=== PATIENT | male | born 1980 | race Caucasian/White ===

== ENCOUNTER 2017-08-22 02:41 | Emergency (ER) | payer OTHER ==
[2017-08-22] MEDS ORDERED: morphine SULFATE 4 MG/ML VIAL IVPUSH ONE (02:57)
[2017-08-22] MEDS ORDERED: SODIUM CHLORIDE 1,000 ML IV STA (02:57)
[2017-08-22] MEDS ORDERED: ONDANSETRON 4 MG/2 ML VIAL IVPUSH ONE (02:57)
--- NOTE | 2017-08-22 02:57 | PDOC ---
History of Present Illness - General Chief Complaint: Pain, Acute Stated Complaint: ABDOMINAL PAIN Time Seen by Provider: 08/22/17 02:52 History Source: Patient Exam Limitations: No Limitations - History of Present Illness Travel History: No Initial Comments: 08/22/17 02:59 36-year-old male with past medical history of morbid obesity status post gastric sleeve and status post gastric bypass who presents emergency Department with sudden onset epigastric pain starting at approximately 1 8 AM. Patient states pain came on all of a sudden 12/15 which she describes as a sharp stabbing pain which woke him from sleep. Pain radiates to his back through his body. Patient states he attempted to take [id number] medications and milk with no relief of symptoms. He denies fevers, chills, shortness of breath, chest pain, nausea, vomiting, diarrhea, rectal bleeding. Past History - Past Medical History Allergies/Adverse Reactions: Allergies Allergy/AdvReac Type Severity Reaction Status Date / Time No Known Allergies Allergy Verified 08/22/17 03:27 Home Medications: Ambulatory Orders NK [No Known Home Medication] 08/22/17 Review of Systems - Review of Systems Able to Perform ROS?: Yes Is the patient limited [place] proficient: No Constitutional: No: Symptoms Reported HEENTM: No: Symptoms Reported Respiratory: No: Symptoms reported Cardiac (ROS): No: Symptoms Reported ABD/GI: Yes: See HPI : No: Symptoms Reported Musculoskeletal: No: Symptoms Reported Integumentary: No: Symptoms Reported Neurological: No: Symptoms reported Endocrine: No: Symptoms Reported Hematologic/Lymphatic: No: Symptoms Reported *Physical Exam - Physical Exam General Appearance: Yes: Appropriately Dressed. No: Apparent Distress Neck: positive: Trachea midline, Supple Respiratory/Chest: positive: Lungs Clear, Normal Breath Sounds. negative: Respiratory Distress, Accessory Muscle Use Cardiovascular: positive: Regular Rhythm, Regular Rate. negative: Murmur Gastrointestinal/Abdominal: positive: Normal Bowel Sounds, Tender (upper abdomen ), Soft Musculoskeletal: positive: Normal Inspection. negative: CVA Tenderness Integumentary: positive: Normal Color, Dry, Warm, Other (Multiple healed laparoscopic surgical wounds noted to abdomen) Neurologic: positive: Alert, Normal Response ED Treatment Course - LABORATORY CBC & Chemistry Diagram: 08/22/17 03:24 08/22/17 03:24 Medical Decision Making - Medical Decision Making 08/22/17 03:02 A/P: 36-year-old male with history of GERD, morbid obesity status post gastric sleeve status post gastric bypass with upper abdominal pain for approximately 2 hours Normoactive bowel sounds Abdomen soft with tenderness noted in the upper abdomen No palpable masses in the abdomen Pulses equal bilaterally Patient with gastric bypass in April of this year. I will obtain laboratory testing, CAT scan. Morphine 4 mg IV for pain, Zofran 4 mg for nausea, normal saline 1 L bolus. 08/22/17 04:39 Laboratory testing is unremarkable. 08/22/17 05:[address] abdomen and pelvis by imaging installation tech: No bowel obstruction, free air or free fluid. Negative for diverticulitis or colitis. Normal appendix noted. Gallbladder is distended. The common bile duct is also mildly dilated. Correlate with any right upper quadrant pain. Ultrasound may be helpful to evaluate for acute gallbladder/biliary disease. Normal liver. Normal spleen. Normal pancreas. Normal adrenal glands. Osseous structures are intact. Lab testing and PE not c/w gallbladder disease at this time. Patient's pain currently 04/16. I will discharge the patient home with instructions to follow- up with his bariatric surgeon. *DC/Admit/Observation/Transfer Diagnosis at time of Disposition: Abdominal pain Qualifiers: Abdominal location: epigastric Qualified Code(s): R10.13 - Epigastric pain - Discharge Dispostion Disposition: HOME Condition at time of disposition: Fair Decision to Admit order: No - Referrals Referrals: ON STAFF,NOT [Primary Care Provider] - - Patient Instructions Additional Instructions: Eat small frequent meals. Keep well-hydrated. Take Tylenol or Motrin as needed for pain. Make an appointment with her bariatric surgeon for evaluation within the next week. Return to emergency department for any worsening pain, nausea, vomiting, fevers , chills or any other concerns. - Post Discharge Activity
[2017-08-22 03:37] LABS: BASO % 0.4 % (0-2.0); EOS % 1.8 % (0-4.5); HEMATOCRIT 40.6 % (35.4-49); HEMOGLOBIN 13.6 GM/dL (11.7-16.9); LYMPH % 17.3 % (8-40); MCH 31.2 pg (25.7-33.7); MCHC 33.4 g/dl (32.0-35.9); MEAN CELL VOLUME 93.2 fl (80-96); MEAN PLT VOLUME 10.4 fl (7.5-11.1); NEUT % 74.5 % (42.8-82.8); PLATELET COUNT 204 K/MM3 (134-434); RBC 4.36 M/mm3 (4.00-5.60)
[2017-08-22] MEDS ORDERED: ONDANSETRON 4 MG/2 ML VIAL ONE (03:42)
[2017-08-22] MEDS ORDERED: MORPHINE SULFATE 10 MG/1 ML *VIAL ONE (03:42)
[2017-08-22 04:11] LABS: ALBUMIN 4.2 g/dl (3.4-5.0); ALK PHOS 83 U/L (45-117); ANION GAP 6 (8-16); BILIRUBIN,TOTAL 0.4 mg/dL (0.2-1.0); BLOOD UREA NITROGEN 15 mg/dL (7-18); CALCIUM 8.3 mg/dL (8.5-10.1); CHLORIDE 108 mmol/L (98-107); CO2 29 mmol/L (21-32); CREATININE 0.8 mg/dL (0.7-1.3); GLUCOSE,RANDOM 90 mg/dL (74-106); SGPT/ALT 41 U/L (12-78); SODIUM 143 mmol/L (136-145); TOT PROT 6.7 g/dl (6.4-8.2)
[2017-08-22 04:11] LABS: URINE APPEARANCE CLOUDY; URINE BILIRUBIN NEGATIVE (<2.0 mg/dL); URINE COLOR YELLOW; URINE GLUCOSE (UA) 1+ (NEGATIVE); URINE KETONE NEGATIVE (NEGATIVE); URINE LEUK ESTERASE NEGATIVE (NEGATIVE); URINE NITRITE NEGATIVE (NEGATIVE); URINE PROTEIN NEGATIVE (NEGATIVE); URINE UROBILINOGEN 4.0 E.U/dl mg/dL (0.2-1.0)
[2017-08-22 04:14] LABS: LIPASE 212 U/L (73-393); POTASSIUM 4.6 mmol/L (3.5-5.1); SGOT/AST 49 U/L (15-37)
--- NOTE | 2017-08-22 04:48 | PDOC ---
*Physical Exam - Vital Signs Last Vital Signs Temp Pulse Resp BP Pulse Ox 97.2 F L 89 19 112/82 98 08/22/17 02:45 08/22/17 02:45 08/22/17 02:45 08/22/17 02:45 08/22/17 02:45 ED Treatment Course - LABORATORY CBC & Chemistry Diagram: 08/22/17 03:24 08/22/17 03:24 - ADDITIONAL ORDERS Additional order review: Laboratory Results 08/22/17 08/22/17 04:14 03:24 Sodium 143 Potassium 4.6 Chloride 108 H Carbon Dioxide 29 Anion Gap 6 L BUN 15 Creatinine 0.8 Creat Clearance w eGFR > 60 Random Glucose 90 Calcium 8.3 L Total Bilirubin 0.4 AST 49 H ALT 41 Alkaline Phosphatase 83 Total Protein 6.7 Albumin 4.2 Lipase 212 Urine Color Yellow Urine Appearance Cloudy Urine pH 8.0 Ur Specific [place] 1.020 Urine Protein Negative Urine Glucose (UA) 1+ H Urine Ketones Negative Urine Blood Negative Urine Nitrite Negative Urine Bilirubin Negative Urine Urobilinogen 4.0 e.u/dl Ur Leukocyte Esterase Negative 08/22/17 03:24 RBC 4.36 MCV 93.2 MCHC 33.4 RDW 12.0 MPV 10.4 Neutrophils % 74.5 Lymphocytes % 17.3 Monocytes % 6.0 Eosinophils % 1.8 Basophils % 0.4 - Medications Given in the ED: ED Medications Discontinued Medications Generic Name Dose Route Start Last Admin Trade Name Freq PRN Reason Stop Dose Admin Sodium Chloride 1,000 mls @ 1,000 mls/hr 08/22/17 02:57 08/22/17 04:13 Normal Saline - IV 08/22/17 03:56 1,000 mls/hr ASDIR STA Administration Morphine Sulfate 4 mg 08/22/17 02:57 08/22/17 03:49 Morphine Sulfate IVPUSH 08/22/17 02:58 4 mg ONCE ONE Administration Ondansetron HCl 4 mg 08/22/17 02:57 08/22/17 03:50 Zofran Injection IVPUSH 08/22/17 02:58 4 mg ONCE ONE Administration Medical Decision Making - Medical Decision Making 08/22/17 04:47 agree care from CAYDEN Swenson *DC/Admit/Observation/Transfer Diagnosis at time of Disposition: Abdominal pain - Discharge Dispostion Disposition: HOME Condition at time of disposition: Fair - Referrals Referrals: ON STAFF,NOT [Primary Care Provider] - - Patient Instructions Printed Discharge Instructions: DI for Abdominal Pain-Adult Additional Instructions: Eat small frequent meals. Keep well-hydrated. Take Tylenol or Motrin as needed for pain. Make an appointment with her bariatric surgeon for evaluation within the next week. Return to emergency department for any worsening pain, nausea, vomiting, fevers , chills or any other concerns. - Post Discharge Activity
[2017-08-22 06:10] VITALS: BP 128/76; PULSE 88; TEMP 98.2
--- NOTE | 2017-08-22 09:30 | PDOC ---
Patient Follow-up (Call Back) - Post ED Follow - Up Condition at time of discharge: Fair Disposition at time of original discharge: HOME Reason for Call Back: Radiology - Disposition Additional Instructions/Notes: Radiology read (+) stone in gallbladder neck 3mm with dilated bile duct. Needs MRCP to r/o obstruction. patient was called and message was left for call back.
--- NOTE | 2017-08-22 10:30 | EKG ---
Test Reason : Blood Pressure : / mmHG Vent. Rate : 071 BPM Atrial Rate : 071 BPM P-R Int : 156 ms QRS Dur : 096 ms QT Int : 396 ms P-R-T Axes : 053 026 046 degrees QTc Int : 430 ms NORMAL SINUS RHYTHM NON-SPECIFIC INTRA-VENTRICULAR CONDUCTION DELAY NO PREVIOUS ECGS AVAILABLE Confirmed by ALIVIA BREAUX MD ([id number]) on 08/22/2017 10:29:56 AM Referred By: Confirmed By:ALIVIA BREAUX MD
--- NOTE | 2017-08-22 12:50 | PDOC ---
Patient Follow-up (Call Back) - Post ED Follow - Up Condition at time of discharge: Fair Disposition at time of original discharge: HOME Reason for Call Back: Radiology Signs/Symptoms Improved: Yes - Disposition Additional Instructions/Notes: Patient returned phone call. Made him aware that he has a stone in the neck of the gallbladder with bile duct dilatation. I informed him he needs and MRCP. He states he is going to call his Bariatric surgeon and see what his instructions are.
== END 2017-08-22 06:11 | disposition home or self-care (01) ==
LOC: JER 02:41
PROC: 3E033NZ Introduction of Analgesics, Hypnotics, Sedatives into Peripheral Vein, Percutaneous Approach (ICD-10-PCS; principal; 2017-08-22)
PROC: 3E033GC Introduction of Other Therapeutic Substance into Peripheral Vein, Percutaneous Approach (ICD-10-PCS; 2017-08-22)
PROC: 3E0337Z Introduction of Electrolytic and Water Balance Substance into Peripheral Vein, Percutaneous Approach (ICD-10-PCS; 2017-08-22)
DX: R10.13 Epigastric pain (principal); K21.9 Gastro-esophageal reflux disease without esophagitis; Z98.84 Bariatric surgery status; Z98.0 Intestinal bypass and anastomosis status
CPT/HCPCS: 36415; 74177-TC; 80053; 81003; 83690; 85025; 93005; 93010; 99282-25; J7030